=== PATIENT | female | born 1985 | race Caucasian/White ===

== ENCOUNTER 2016-03-16 13:42 | Emergency (ER) | payer OTHER ==
--- NOTE | 2016-03-16 15:49 | REP ---
Clinical: Trauma . Technique: Internal rotation, external rotation, and Y view left shoulder . Findings: No acute fracture or dislocation. The acromioclavicular and glenohumeral joints are intact. No periarticular calcifications or degenerative changes are appreciated. Sub acromial space is normal. Surrounding soft tissues are unremarkable. Impression: Normal left shoulder radiographs. Signed by Tony Peñaloza MD 03/16/2016 03:40 P
--- NOTE | 2016-03-16 16:02 | EDDOCDS ---
Nurse's Notes [facility] Name: Kalyn Olmos Age: 31 yrs Sex: Female : 1985 Arrival Date: 03/16/2016 Time: 13:42 Bed PR Private MD: Corry Mesa A.N.P. Diagnosis: Sprain of shoulder joint Presentation: 03/16 13:56 Presenting complaint: Patient states: Pt presents with pain left shoulder after dls slipping and falling on ice one week ago today was seem at [facility] had negative x/rays and was given a sling that she is not usung. Adult Sepsis Screening: The patient does not have new or worsening altered mentation. Patient's respiratory rate is less than 22. Systolic blood pressure is greater than 100. Patient has a qSOFA score of 1- Negative Sepsis Screen. Status: Patient is not a retail service specialist or dependent. Transition of care: patient was not received from another setting of care. 13:56 Acuity: MICHAELA Level 4 dls 13:56 Method Of Arrival: Walkin/Carried/Asstd dls Triage Assessment: 13:59 General: Appears in no apparent distress, well developed, well nourished, well groomed, dls Behavior is cooperative. Pain: Pain currently is 6 out of 10 on a pain scale. HIV screening NA for this visit Offered previously. 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 bc implant 2. Xanax 0.25 mg Oral tab as needed - PMHx: liver and spleen enlarged; - PSHx: Tonsillectomy; wisdom teeth; - Social history: Smoking status: Patient uses tobacco products, light tobacco smoker. No barriers to communication noted, The patient speaks fluent Tanzanian. - : The pt / caregiver states he / she is not on anticoagulants. Home medication list is obtained from the patient. - Exposure Risk Screening:: None identified. Vital Signs: 13:43 BP 136 / 77; Pulse 73; Resp 18 S; Temp 98.3(O); Pulse Ox 99% on R/A; Weight 74.84 kg dd6 (R); Height 5 ft. 5 in. (165.10 cm) (R); 15:49 BP 132 / 58; Pulse 59; Resp 18; Temp 97.1(O); Pulse Ox 98% on R/A; Pain 5/10; ct3 13:43 Body Mass Index 27.46 (74.84 kg, 165.10 cm) dd6 Vitals: 13:43 Log In Time: March 16, 2016 at 13:41. dd6 ED Course: 13:43 Patient visited by Adan Allen PCA. dd6 13:43 Corry Mesa is Private Physician. dd6 13:43 Patient moved to Waiting dd6 13:44 Patient moved to Pre RCE dd6 13:51 Triage Initiated dls 14:24 Patient moved to Triage 1 ct3 14:42 [facility] Payment Agreement was scanned into [employer] and attached to record. jp5 14:43 Daryl Nunez PA-C is PHCP. dk1 14:43 Veronica Godwin MD is Attending Physician. dk1 14:51 Patient visited by Daryl Nunez PA-C. dk1 14:58 Patient moved to TR2 ms18 15:25 Patient visited by Marleni Porter PCA. ct3 15:45 Patient moved to PR1 / 25 ct3 15:50 Patient visited by Marleni Porter PCA. ct3 15:53 [facility] is Referral Physician. dk1 Order Results: There are currently no results for this order. Outcome: 15:53 Discharge ordered by Provider. dk1 16:01 Patient left the ED. [facility] Signatures: Bernie Bro RN RN kcs Scott, Debra, RN RN dls Keyes, David, PA-C PA-C dk1 Adan Allen PCA HEAD SOFT SUGAR OPERATOR dd6 Marleni Porter PCA HEAD SOFT SUGAR OPERATOR ct3 Danielle Mayo RN RN ms18 Shane Sanches jp5 Corrections: (The following items were deleted from the chart) 13:55 13:50 Presenting complaint: Patient states: Pt presents with pain right wrist wrenched dls wrist with a drill at work 3-4 weeks ago. dls 13:55 13:50 Adult Sepsis Screening: The patient does not have new or worsening altered dls mentation. Patient's respiratory rate is less than 22. Systolic blood pressure is greater than 100. Patient has a qSOFA score of 0- Negative Sepsis Screen. dls 13:55 13:50 Suicide/Homicide risk assessment- the patient denies having any suicidal and/or dls homicidal ideations and does not present with any other emotional, behavioral or mental health complaints dls 13:50 Acuity: MICHAELA Level 4 dls dls 13:50 Method Of Arrival: Walkin/Carried/Asstd dls dls MTDD
--- NOTE | 2016-03-16 16:02 | EDDOCDS ---
Physician Documentation [facility] Name: Kalyn Olmos Age: 31 yrs Sex: Female : 1985 Arrival Date: 03/16/2016 Time: 13:42 Bed PR Private MD: Corry Mesa A.N.P. Disposition: 03/16/16 15:53 Discharged to Home/Self Care. Impression: Sprain of shoulder joint. - Condition is Stable. - Discharge Instructions: Shoulder Pain. - Prescriptions for Ibuprofen 600 mg Oral Tablet - take 1 tablet by ORAL route every 6 hours As needed take with food; 30 tablet. Zanaflex 4 mg Oral Tablet - take 1 tablet by ORAL route every 8 hours As needed; 20 tablet. - Medication Reconciliation, Local Pharmacy Hours form. - Follow up: [facility]; When: 4 - 5 days; Reason: Continuance of care. Follow up: Emergency Department; When: As needed; Reason: Worsening of conditions. - Problem is new. - Symptoms have improved. Historical: - Allergies: Codeine Sulfate; Tramadol HCl; - Home Meds: 1. bc implant 2. Xanax 0.25 mg Oral tab as needed - PMHx: liver and spleen enlarged; - PSHx: Tonsillectomy; wisdom teeth; - Social history: Smoking status: Patient uses tobacco products, light tobacco smoker. No barriers to communication noted, The patient speaks fluent Bahamian. - : The pt / caregiver states he / she is not on anticoagulants. Home medication list is obtained from the patient. - Exposure Risk Screening:: None identified. 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 5 in. (165.10 cm) (R); 15:49 BP 132 / 58; Pulse 59; Resp 18; Temp 97.1(O); Pulse Ox 98% on R/A; Pain 5/10; ct3 13:43 Body Mass Index 27.46 (74.84 kg, 165.10 cm) dd6 MDM: 14:42 [facility] Payment Agreement was scanned into [employer] and attached to record. jp5 14:55 Financial registration complete. jp5 14:58 Shoulder, Complete Ordered. EDMS Signatures: Dispatcher [employer] EDBernie Lopez, RN RN Aracelis Ahumada RN RN dls Keyes, David, FREDA PAShane Casey jp5 The chart was reviewed and I authenticate all verbal orders and agree with the evaluation and treatment provided.Attachments: 14:42 [facility] Payment Agreement jp5 MTDD
--- NOTE | 2016-03-18 17:02 | EDDOCDS ---
Nurse's Notes [facility] Name: Kalyn Olmos Age: 31 yrs Sex: Female : 1985 Arrival Date: 03/16/2016 Time: 13:42 Bed PR Private MD: Corry Mesa A.N.P. Diagnosis: Sprain of shoulder joint Presentation: 03/16 13:56 Presenting complaint: Patient states: Pt presents with pain left shoulder after dls slipping and falling on ice one week ago today was seem at [facility] had negative x/rays and was given a sling that she is not usung. Adult Sepsis Screening: The patient does not have new or worsening altered mentation. Patient's respiratory rate is less than 22. Systolic blood pressure is greater than 100. Patient has a qSOFA score of 1- Negative Sepsis Screen. 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 Transition of care: patient was not received from another setting of care. 13:56 Acuity: MICHAELA Level 4 dls 13:56 Method Of Arrival: Walkin/Carried/Asstd dls Triage Assessment: 13:59 General: Appears in no apparent distress, well developed, well nourished, well groomed, dls Behavior is cooperative. Pain: Pain currently is 6 out of 10 on a pain scale. HIV screening NA for this visit Offered previously. 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 bc implant 2. Xanax 0.25 mg Oral tab as needed - PMHx: liver and spleen enlarged; - PSHx: Tonsillectomy; wisdom teeth; - Social history: Smoking status: Patient uses tobacco products, light tobacco smoker. No barriers to communication noted, The patient speaks fluent [place]. - Family history: Not pertinent. - : The pt / caregiver states he / she is not on anticoagulants. Home medication list is obtained from the patient. - Exposure Risk Screening:: None identified. Screenin:00 Screening information is obtained from prior medical records. Fall risk: No risks kcs identified. Assistance ADL's: requires no assistance with activities of daily living. Abuse/DV Screen: The patient / caregiver reports he/she is: not in a situation that causes fear, pain or injury. Nutritional screening: No deficits noted. Advance Directives: Currently, there is no health care proxy. home support is adequate. Assessment: 16:00 Reassessment: Patient states symptoms have improved. patient states the shoulder kcs bothers her more at night than during the day.. General: Appears comfortable, well developed, well nourished, well groomed, Behavior is cooperative, pleasant. Pain: Location: left shoulder. Neurological: Level of Consciousness is awake, alert. Respiratory: Airway is patent Respiratory effort is even, unlabored, Respiratory pattern is regular, symmetrical. Derm: Skin is intact, is healthy with good turgor, Skin is dry, Skin is normal. Vital Signs: 13:43 BP 136 / 77; Pulse 73; Resp 18 S; Temp 98.3(O); Pulse Ox 99% on R/A; Weight 74.84 kg dd6 (R); Height 5 ft. 5 in. (165.10 cm) (R); 15:49 BP 132 / 58; Pulse 59; Resp 18; Temp 97.1(O); Pulse Ox 98% on R/A; Pain 5/10; ct3 13:43 Body Mass Index 27.46 (74.84 kg, 165.10 cm) dd6 Vitals: 13:43 Log In Time: March 16, 2016 at 13:41. dd6 ED Course: 13:43 Patient visited by Adan Allen PCA. dd6 13:43 Corry Mesa is Private Physician. dd6 13:43 Patient moved to Waiting dd6 13:44 Patient moved to Pre RCE dd6 13:51 Triage Initiated dls 14:24 Patient moved to Triage 1 ct3 14:42 [facility] Payment Agreement was scanned into [employer] and attached to record. jp5 14:43 Daryl Nunez PA-C is PHCP. dk1 14:43 Veronica Godwin MD is Attending Physician. dk1 14:51 Patient visited by Daryl Nunez PA-C. dk1 14:58 Patient moved to TR2 ms18 15:25 Patient visited by Marleni Porter PCA. ct3 15:45 Patient moved to PR1 / 25 ct3 15:50 Patient visited by Marleni Porter PCA. ct3 15:53 [facility] is Referral Physician. dk1 16:00 The patient / caregiver is instructed regarding the plan of care and ED course. kcs 16:00 No IV's were initiated during this patient's visit. No procedures done that require kcs assistance. 16:20 Shoulder, Complete Returned. [facility] 03/17 06:08 T-Sheet-- Draft Copy was scanned into [employer] and attached to record. [facility] Order Results: Radiology Order: Shoulder, Complete Test: Shoulder, Complete REASON FOR EXAMINATION: Trauma; Clinical: Trauma .; ; Technique: Internal rotation, external rotation, and Y view left shoulder .; ; Findings:; No acute fracture or dislocation. The acromioclavicular and glenohumeral joints; are intact. No periarticular calcifications or degenerative changes are; appreciated. Sub acromial space is normal. Surrounding soft tissues are; unremarkable.; ; Impression:; Normal left shoulder radiographs.; ; ; Signed by; Tony Peñaloza MD 03/16/2016 03:40 P; Outcome: 03/16 15:53 Discharge ordered by Provider. dk1 16:00 Discharge Assessment: Patient awake, alert and oriented x 3. No cognitive and/or kcs functional deficits noted. Patient verbalized understanding of disposition instructions. Patient awake and alert. patient administered narcotics - no. The following High Risk Discharge criteria are identified: None. Discharged to home ambulatory, with family. Condition: stable. Discharge instructions given to patient, Instructed on discharge instructions, follow up and referral plans. medication usage, no driving heavy equipment, no drinking with medication, Demonstrated understanding of instructions, medications, Pt was receptive of discharge instructions/ teaching. No special radiology studies were completed. Property sent home with patient. 16:01 Patient left the ED. kcs Signatures: Dispatcher [facility] Bernie Bro RN RN Aracelis Ahumada RN RN dls Keyes, David, PA-C PA-C dk1 Adan Allen, MEDIA SALES EXECUTIVE MEDIA SALES EXECUTIVE dd6 Marleni Porter, MEDIA SALES EXECUTIVE MEDIA SALES EXECUTIVE ct3 Danielle Mayo,VIKTOR RN ms18 Fouzia, Shane Coffman jp5 Corrections: (The following items were deleted from the chart) 13:55 13:50 Presenting complaint: Patient states: Pt presents with pain right wrist wrenched dls wrist with a drill at work 3-4 weeks ago. dls 13:55 13:50 Adult Sepsis Screening: The patient does not have new or worsening altered dls mentation. Patient's respiratory rate is less than 22. Systolic blood pressure is greater than 100. Patient has a qSOFA score of 0- Negative Sepsis Screen. dls 13:55 13:50 Suicide/Homicide risk assessment- the patient denies having any suicidal and/or dls homicidal ideations and does not present with any other emotional, behavioral or mental health complaints dls 13:55 13:50 Acuity: MICHAELA Level 4 dls dls 13: 13:50 Method Of Arrival: Walkin/Carried/Asstd dls dls 16:33 16:32 Screening information is obtained from prior medical records. kcs kcs 16:33 16:32 Fall risk: No risks identified. kcs kcs 16:33 16:32 Assistance ADL's: requires no assistance with activities of daily living. kcs kcs 16:33 16:32 Abuse/DV Screen: The patient / caregiver reports he/she is: not in a situation kcs that causes fear, pain or injury. kcs 16:33 16:32 Nutritional screening: No deficits noted. kcs kcs 16:33 16:32 Advance Directives: Currently, there is no health care proxy. kcs kcs 16:33 16:32 home support is adequate. kcs kcs Chart Complete MTDD
--- NOTE | 2016-03-18 17:02 | EDDOCDS ---
Physician Documentation [facility] Name: Kalyn Olmos Age: 31 yrs Sex: Female : 1985 Arrival Date: 03/16/2016 Time: 13:42 Bed PR Private MD: Corry Mesa A.N.P. Disposition: 03/16/16 15:53 Discharged to Home/Self Care. Impression: Sprain of shoulder joint. - Condition is Stable. - Discharge Instructions: Shoulder Pain. - Prescriptions for Ibuprofen 600 mg Oral Tablet - take 1 tablet by ORAL route every 6 hours As needed take with food; 30 tablet. Zanaflex 4 mg Oral Tablet - take 1 tablet by ORAL route every 8 hours As needed; 20 tablet. - Medication Reconciliation, Local Pharmacy Hours form. - Follow up: [facility]; When: 4 - 5 days; Reason: Continuance of care. Follow up: Emergency Department; When: As needed; Reason: Worsening of conditions. - Problem is new. - Symptoms have improved. Historical: - Allergies: Codeine Sulfate; Tramadol HCl; - Home Meds: 1. bc implant 2. Xanax 0.25 mg Oral tab as needed - PMHx: liver and spleen enlarged; - PSHx: Tonsillectomy; wisdom teeth; - Social history: Smoking status: Patient uses tobacco products, light tobacco smoker. No barriers to communication noted, The patient speaks fluent Palestinian. - Family history: Not pertinent. - : The pt / caregiver states he / she is not on anticoagulants. Home medication list is obtained from the patient. - Exposure Risk Screening:: None identified. 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 5 in. (165.10 cm) (R); 15:49 BP 132 / 58; Pulse 59; Resp 18; Temp 97.1(O); Pulse Ox 98% on R/A; Pain 5/10; ct3 13:43 Body Mass Index 27.46 (74.84 kg, 165.10 cm) dd6 MDM: 14:42 [facility] Payment Agreement was scanned into [employer] and attached to record. jp5 14:55 Financial registration complete. jp5 14:58 Shoulder, Complete Ordered. EDIA 03/17 06:08 T-Sheet-- Draft Copy was scanned into [employer] and attached to record. cami Signatures: Dispatcher [employer] EDBernie Lopez RN RN kcs Scott, Debra, RN RN dls Keyes, David, PABasim PA-Misha yanes Arel, Shane Coffman jp5 The chart was reviewed and I authenticate all verbal orders and agree with the evaluation and treatment provided.Attachments: 03/16 14:42 [facility] Payment Agreement jp5 03/17 06:08 T-Sheet-- Draft Copy [email or web address] Chart Complete MTDD
--- NOTE | 2016-03-18 17:02 | EDDOCDS ---
Physician Documentation [facility] Name: Kalyn Olmos Age: 31 yrs Sex: Female : 1985 Arrival Date: 03/16/2016 Time: 13:42 Bed PR Private MD: Corry Mesa A.N.P. Disposition: 03/16/16 15:53 Discharged to Home/Self Care. Impression: Sprain of shoulder joint. - Condition is Stable. - Discharge Instructions: Shoulder Pain. - Prescriptions for Ibuprofen 600 mg Oral Tablet - take 1 tablet by ORAL route every 6 hours As needed take with food; 30 tablet. Zanaflex 4 mg Oral Tablet - take 1 tablet by ORAL route every 8 hours As needed; 20 tablet. - Medication Reconciliation, Local Pharmacy Hours form. - Follow up: [facility]; When: 4 - 5 days; Reason: Continuance of care. Follow up: Emergency Department; When: As needed; Reason: Worsening of conditions. - Problem is new. - Symptoms have improved. Historical: - Allergies: Codeine Sulfate; Tramadol HCl; - Home Meds: 1. bc implant 2. Xanax 0.25 mg Oral tab as needed - PMHx: liver and spleen enlarged; - PSHx: Tonsillectomy; wisdom teeth; - Social history: Smoking status: Patient uses tobacco products, light tobacco smoker. No barriers to communication noted, The patient speaks fluent Nicaraguan. - Family history: Not pertinent. - : The pt / caregiver states he / she is not on anticoagulants. Home medication list is obtained from the patient. - Exposure Risk Screening:: None identified. 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 5 in. (165.10 cm) (R); 15:49 BP 132 / 58; Pulse 59; Resp 18; Temp 97.1(O); Pulse Ox 98% on R/A; Pain 5/10; ct3 13:43 Body Mass Index 27.46 (74.84 kg, 165.10 cm) dd6 MDM: 14:42 [facility] Payment Agreement was scanned into [employer] and attached to record. jp5 14:55 Financial registration complete. jp5 14:58 Shoulder, Complete Ordered. EDWV 03/17 06:08 T-Sheet-- Draft Copy was scanned into [employer] and attached to record. cami Signatures: Dispatcher [employer] EDBernie Lopez RN RN kcs Scott, Debra, RN RN dls Keyes, David, PABasim PA-Misha yanes Arel, Shane Coffman jp5 The chart was reviewed and I authenticate all verbal orders and agree with the evaluation and treatment provided.Attachments: 03/16 14:42 [facility] Payment Agreement jp5 03/17 06:08 T-Sheet-- Draft Copy [email or web address] Chart Complete MTDD
== END 2016-03-16 16:01 | disposition home or self-care (01) ==
LOC: M ED 13:42
DX: S43.402A Unspecified sprain of left shoulder joint, initial encounter (principal); W19.XXXA Unspecified fall, initial encounter; Y92.89 Other specified places as the place of occurrence of the external cause; Y93.89 Activity, other specified; Y99.8 Other external cause status; R16.2 Hepatomegaly with splenomegaly, not elsewhere classified; Z72.0 Tobacco use; Z79.3 Long term (current) use of hormonal contraceptives; Z88.2 Allergy status to sulfonamides; Z88.5 Allergy status to narcotic agent

== ENCOUNTER 2016-05-02 12:38 | Emergency (ER) | payer OTHER ==
[2016-05-02] MEDS ORDERED: ONDANSETRON 4MG/2ML VIAL (J2405) As Ordered ONE (14:22)
[2016-05-02] MEDS ORDERED: KETOROLAC 30 MG/ML VIAL (J1885) As Ordered ONE (14:22)
[2016-05-02 15:02] LABS: BASO % 0.3 % (0.0-1.0); EOS % 0.9 % (0.0-3.0); LARGE UNSTAINED CELL # 0.1 K/mm3 (0.0-0.4); LARGE UNSTAINED CELL % 1.6 % (0.0-4.0); LYMPH # 0.8 K/mm3 (1.5-6.5); LYMPH % 16.5 % (24.0-44.0); MEAN CORPUSCULAR HEMOGLOBIN 31.3 pg (27.0-33.0); MEAN CORPUSCULAR HGB CONC 35.8 g/dl (32.0-36.5); MEAN CORPUSCULAR VOLUME 87.6 fl (80.0-96.0); MONO # 0.3 K/mm3 (0.0-0.8); MONO % 6.6 % (0.0-5.0); NEUTROPHILS # 3.3 K/mm3 (1.8-7.7); NEUTROPHILS % 74.1 % (36.0-66.0); PLATELET COUNT, AUTOMATED 174 k/mm3 (150-450); RED CELL DISTRIBUTION WIDTH 12.7 % (11.5-14.5); WHITE BLOOD COUNT 4.5 K/mm3 (4.0-10.0)
[2016-05-02 15:11] LABS: CONTROL LINE MONO INT CTR LINE PRESENT
[2016-05-02 15:14] LABS: AMYLASE 35 U/L (25-115)
[2016-05-02 15:19] LABS: ALBUMIN 4.4 GM/DL (3.2-5.2); ALBUMIN/GLOBULIN RATIO 1.69 (1.00-1.93); ALKALINE PHOSPHATASE 69 U/L (45-117); ALT/SGPT 18 U/L (12-78); ANION GAP 9 MEQ/L (8-16); AST/SGOT 13 U/L (15-37); BILIRUBIN,TOTAL 0.5 MG/DL (0.2-1.0); BLOOD UREA NITROGEN 5 MG/DL (7-18); CALCIUM LEVEL 8.9 MG/DL (8.5-10.1); CARBON DIOXIDE LEVEL 27 MEQ/L (21-32); CHLORIDE LEVEL 107 MEQ/L (98-107); CREATININE FOR GFR 0.73 MG/DL (0.55-1.02); GLOMERULAR FILTRATION RATE > 60.0 (>60); GLUCOSE, FASTING 78 MG/DL (70-105); SODIUM LEVEL 143 MEQ/L (136-145)
[2016-05-02] MEDS ORDERED: ISOVUE-370 76% 100ML VIAL (Q9967) As Ordered ONE (15:21)
--- NOTE | 2016-05-02 15:46 | REP ---
Clinical: Pain and swelling. Technique: Axial contrast enhanced images from the skull base to the thoracic inlet with coronal and sagittal re-formations using 100 ml IU 370 intravenous contrast material. Findings: Mild adenopathy (left greater than right) noted with left-sided lymph nodes in the submandibular region measuring up to approximately 17 mm. No significant inflammatory stranding, mass/mass effect, drainable collection or abscess. The nasopharynx, oropharynx and hypopharynx appears normal. Airway is patent. Impression: Adenopathy may reflect underlying infectious/inflammatory process. No further mass/mass effect, drainable collection, abscess or pathology appreciated. Signed by Tony Peñaloza MD 05/02/2016 03:37 P
[2016-05-02] MEDS ORDERED: AUGMENTIN 875 MG TAB As Ordered ONE (16:24)
--- NOTE | 2016-05-02 16:35 | EDDOCDS ---
Physician Documentation [facility] Name: Kalyn Olmos Age: 31 yrs Sex: Female : 1985 Arrival Date: 05/02/2016 Time: 12:38 Bed I2 / M2 Private MD: NO PRIMARY PHYSICIAN, . Disposition: 05/02/16 16:14 Discharged to Home/Self Care. Impression: Acute gingivitis, Acute lymphadenitis - Cervical Lymphadenopathy. - Condition is Stable. - Discharge Instructions: Gingivitis, [id number], Lymphadenopathy. - Prescriptions for Augmentin 875- 125 mg Oral Tablet - take 1 tablet by ORAL route every 12 hours for 10 days; 20 tablet. magic mouthwash Mucous Membrane Solution - apply to affected area 5 milliliters by ORAL route 4 times per day As needed Gargle, Swish, Spit; Maalox, Liquid Benadryl, and Viscous Lidocaine; 1 to 1 to 1 ratio; 237 milliliter. - Medication Reconciliation, Referral List Call for Appointment, Dental Referral List, Local Pharmacy Hours form. - [facility] up: [facility] ; When: 1 - 2 days; Reason: Recheck today's complaints, Continuance of care. Follow up: Dentist Your; When: 1 - 2 days; Reason: Recheck today's complaints, Continuance of care. Follow up: Emergency Department; Reason: Worsening of conditions. - Problem is new. - Symptoms have improved. Historical: - Allergies: Codeine Sulfate; Tramadol HCl; - Home Meds: 1. bc implant 2. Xanax 0.25 mg Oral tab as needed (Last dose: Unknown) 3. nystatin 100,000 unit/mL Oral susp 4 times per day (Last dose: 05/02/2016 10:46) 4. sulfamethoxazole-trimethoprim 800-160 mg Oral tab 1 tab every 12 hours (Last dose: 05/02/2016 07:30) - PMHx: liver and spleen enlarged; Anxiety; - PSHx: Tonsillectomy; wisdom teeth; - Social history: Smoking status: Patient uses tobacco products, current every day smoker. No barriers to communication noted, The patient speaks fluent Maltese, Speaks appropriately for age. - Family history: No immediate family members are acutely ill. - : The pt / caregiver states he / she is not on anticoagulants. Home medication list is obtained from the patient. - Exposure Risk Screening:: None identified. 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 5 in. (165.10 cm) (R); Pain 7/10; 15:46 Temp 99.3(T); mb9 15:46 Pain 4/10; mb9 16:12 BP 103 / 59; Pulse 80; Resp 18; Temp 97.9(O); Pulse Ox 98% on R/A; Pain 6/10; nb2 12:41 Body Mass Index 26.96 (73.48 kg, 165.10 cm) gr2 MDM: 13:58 Financial registration complete. lg 14:12 IV Saline Lock ordered. ef1 14:12 Strep Screen, Nursing ordered. ef1 14:12 Obtain sample by nasopharyngeal swab ordered. ef1 14:13 ketorolac 30 mg IVP once ordered. ef1 14:13 Ondansetron 4 mg IVP once ordered. ef1 14:14 CBC with Diff Ordered. EDMS 14:14 Complete Comphrensive Metabolic Ordered. EDMS 14:14 Monoscreen Ordered. EDMS 14:14 -Influenza A&B Rapid Antigen - Nose Ordered. EDMS 14:18 Amylase Ordered. EDMS 14:18 Lipase Ordered. EDMS 14:19 CT Neck With Contrast Ordered. EDMS 14:28 [facility] Payment Agreement was scanned into [employer] and attached to record. lg 14:52 GATS (NEGATIVE STREP SCREEN) Ordered. EDMS 15:19 CBC with Diff Reviewed. ef1 15:19 Monoscreen Reviewed. ef1 15:19 -Influenza A&B Rapid Antigen - Nose Reviewed. ef1 15:19 Amylase Reviewed. ef1 15:19 Lipase Reviewed. ef1 15:29 Complete Comphrensive Metabolic Reviewed. ef1 15:29 Monoscreen Reviewed. ef1 15:51 CT Neck With Contrast Reviewed. ef1 16:16 Amoxicillin-Clavulanate 875 mg 1 tabs PO once ordered. ef1 Administered Medications: 14:49 Drug: Ondansetron 4 mg [ondansetron HCl 2 mg/mL intravenous solution (2 mL)] Route: mb9 IVP; Site: left antecubital; 14:50 Drug: ketorolac 30 mg [ketorolac 30 mg/mL (1 mL) injection solution (1 mL)] Route: IVP; mb9 Site: left antecubital; 15:46 Follow up: Pain 4/10 Adult; Response: Pain is decreased mb9 16:30 Drug: Amoxicillin-Clavulanate 1 tabs [amoxicillin 875 mg-potassium clavulanate 125 mg dls tablet (1 tabs)] Route: PO; 16:31 Follow up: Response: Pt left department before re-evaluation is appropriate dls Signatures: Dispatcher [employer] EDMS Aracelis Majano RN RN Erwin Cali, Donn Reg lg Ghazala Christopher, PA-C PA-C ef1 Day Lerma RN RN dsf Belles, MichaelRN RN mb9 The chart was reviewed and I authenticate all verbal orders and agree with the evaluation and treatment provided.Corrections: (The following items were deleted from the chart) 14:24 14:14 CT Maxillofacial with contrast+CT ordered. EDMS EDMS Attachments: 14:28 [facility] [place] lg MTDD
--- NOTE | 2016-05-02 16:35 | EDDOCDS ---
Nurse's Notes [facility] Name: Kalyn Olmos Age: 31 yrs Sex: Female : 1985 Arrival Date: 05/02/2016 Time: 12:38 Bed I2 / M2 Private MD: NO PRIMARY PHYSICIAN, . Diagnosis: Acute gingivitis;Acute lymphadenitis-Cervical Lymphadenopathy Presentation: 05/02 12:43 Presenting complaint: Patient states: was seen at ER in [facility]. pt reports sores in dsf mouth. pt reports left sided neck pain and swelling. pt also reports pain to left side when taking a deep breath. pt was given antibiotics for an infection. pt did have an MRI done. Onset: The symptoms/episode began/occurred 3 day(s) ago. This patient has not experienced a previous allergic reaction. Anaphylaxis evaluation, the patient reports or I have noted the following symptoms which indicate a significant risk of anaphylaxis: no signs or symptoms of anaphylaxis were noted. Adult Sepsis Screening: The patient does not have new or worsening altered mentation. Patient's respiratory rate is less than 22. Systolic blood pressure is greater than 100. Patient has a qSOFA score of 0- Negative Sepsis Screen. Suicide/Homicide risk assessment- the patient denies having any suicidal and/or homicidal ideations and does not present with any other emotional, behavioral or mental health complaints. Status: Patient is not a disabilities services officer or dependent. Transition of care: patient was not received from another setting of care. 12:43 Acuity: MICHAELA Level 3 dsf 12:43 Method Of Arrival: Walkin/Carried/Asstd dsf Triage Assessment: 12:47 General: Appears in no apparent distress, Behavior is appropriate for age, cooperative. dsf Pain: Location: mouth and left side of neck Pain currently is 7 out of 10 on a pain scale. Quality of pain is described as stabbing, throbbing. HIV screening NA for this visit Offered previously. EENT: Reports difficulty swallowing since 3 days ago. Respiratory: Reports no respiratory complaints. SCHEDULE HANGER: 12:47 LMP N/A - control method dsf Historical: - Allergies: Codeine Sulfate; Tramadol HCl; - Home Meds: 1. bc implant 2. Xanax 0.25 mg Oral tab as needed (Last dose: Unknown) 3. nystatin 100,000 unit/mL Oral susp 4 times per day (Last dose: 05/02/2016 10:46) 4. sulfamethoxazole-trimethoprim 800-160 mg Oral tab 1 tab every 12 hours (Last dose: 05/02/2016 07:30) - PMHx: liver and spleen enlarged; Anxiety; - PSHx: Tonsillectomy; wisdom teeth; - Social history: Smoking status: Patient uses tobacco products, current every day smoker. No barriers to communication noted, The patient speaks fluent Danish, Speaks appropriately for age. - Family history: No immediate family members are acutely ill. - : The pt / caregiver states he / she is not on anticoagulants. Home medication list is obtained from the patient. - Exposure Risk Screening:: None identified. Screenin:31 Screening information is obtained from the patient. Fall risk: No risks identified. dls Assistance ADL's: requires no assistance with activities of daily living. Abuse/DV Screen: The patient / caregiver reports he/she is: not in a situation that causes fear, pain or injury. Nutritional screening: No deficits noted. Advance Directives: Currently, there is no health care proxy. There is no active DNR order. There is no living will. There is no Power of Chipper Feeder. Advance directive information has not previously been placed in an [facility] medical record. home support is adequate. Assessment: 14:51 General: Appears uncomfortable, Behavior is appropriate for age, cooperative. Pain: mb9 Location: mouth Pain currently is 8 out of 10 on a pain scale. Aggravated by eating, drinking. EENT: Lesions noted. pt appears to have lesions to the left upper gum line.. Respiratory: Airway is patent Respiratory effort is even, unlabored. 15:32 General: Appears. dls 15:33 General: Pt to CT and returned via w/c IV site remains patent and clear.. dls 15:46 Reassessment: Patient states feeling better. Patient states symptoms have improved. mb9 General: Appears uncomfortable, Behavior is cooperative. Pain: Location: mouth Pain currently is 4 out of 10 on a pain scale. 16:33 Respiratory: Breath sounds are clear bilaterally. dls Vital Signs: 12:41 BP 126 / 75; Pulse 76; Resp 18 S; Temp 99.6(O); Pulse Ox 100% on R/A; Weight 73.48 kg gr2 (R); Height 5 ft. 5 in. (165.10 cm) (R); Pain 7/10; 15:46 Temp 99.3(T); mb9 15:46 Pain 4/10; mb9 16:12 BP 103 / 59; Pulse 80; Resp 18; Temp 97.9(O); Pulse Ox 98% on R/A; Pain 6/10; nb2 12:41 Body Mass Index 26.96 (73.48 kg, 165.10 cm) gr2 Vitals: 12:41 Log In Time: May 02, 2016 at 12:41. gr2 ED Course: 12:40 Patient visited by Heidi Andrew. gr2 12:40 NO PRIMARY PHYSICIAN, . is Private Physician. gr2 12:40 Patient moved to Waiting gr2 12:41 Patient visited by Heidi Andrew. gr2 12:41 Patient moved to Pre RCE gr2 12:45 Triage Initiated dsf 13:40 Patient moved to Triage 2 srm 13:56 Ghazala Christopher PA-C is [facility]. ef1 13:56 Veronica Godwin MD is Attending Physician. ef1 13:56 Patient visited by Ghazala Christopher PA-C. ef1 14:12 Patient moved to I2 / M2 srm 14:16 Patient visited by Ghazala Christopher PA-C. ef1 14:28 [facility] Payment Agreement was scanned into [employer] and attached to record. lg 14:49 Patient visited by Ghazala Christopher PA-C. ef1 14:49 Lipase Sent. mb9 14:49 Amylase Sent. mb9 14:50 -Influenza A&B Rapid Antigen - Nose Sent. mb9 14:50 Monoscreen Sent. mb9 14:50 Complete Comphrensive Metabolic Sent. mb9 14:50 CBC with Diff Sent. mb9 14:52 Inserted saline lock: 20 gauge in left antecubital area and blood collected. The mb9 patient tolerated the procedure well. 15:19 Patient visited by Ghazala Christopher PA-C. ef1 15:48 CT Neck With Contrast Returned. EDMS 15:51 Patient visited by Ghazala Christopher PA-C. ef1 16:11 Patient visited by Ghazala Christopher PA-C. ef1 16:13 Patient visited by Romana Murcia. nb2 16:14 [facility] is Referral Physician. ef1 16:14 Your, Dentist is Referral Physician. ef1 16:31 The patient / caregiver is instructed regarding the plan of care and ED course. dls 16:31 No procedures done that require assistance. dls 16:32 Discontinued IV lock intact, bleeding controlled, pressure dressing applied, No dls redness/swelling at site. Administered Medications: 14:49 Drug: Ondansetron 4 mg [ondansetron HCl 2 mg/mL intravenous solution (2 mL)] Route: mb9 IVP; Site: left antecubital; 14:50 Drug: ketorolac 30 mg [ketorolac 30 mg/mL (1 mL) injection solution (1 mL)] Route: IVP; mb9 Site: left antecubital; 15:46 Follow up: Pain 4/10 Adult; Response: Pain is decreased mb9 16:30 Drug: Amoxicillin-Clavulanate 1 tabs [amoxicillin 875 mg-potassium clavulanate 125 mg dls tablet (1 tabs)] Route: PO; 16:31 Follow up: Response: Pt left department before re-evaluation is appropriate dls Order Results: Lab Order: CBC with Diff; SPEC'M 05/02/16 14:44 Test: WHITE BLOOD COUNT; Value: 4.5; Range: 4.0-10.0; Units: K/mm3; Status: F Test: RED BLOOD COUNT; Value: 4.29; Range: 4.00-5.40; Units: M/mm3; Status: F Test: HEMOGLOBIN; Value: 13.4; Range: 12.0-16.0; Units: g/dl; Status: F Test: HEMATOCRIT; Value: 37.6; Range: 36.0-47.0; Units: %; Status: F Test: MEAN CORPUSCULAR VOLUME; Value: 87.6; Range: 80.0-96.0; Units: fl; Status: F Test: MEAN CORPUSCULAR HEMOGLOBIN; Value: 31.3; Range: 27.0-33.0; Units: pg; Status: F Test: MEAN CORPUSCULAR HGB CONC; Value: 35.8; Range: 32.0-36.5; Units: g/dl; Status: F Test: RED CELL DISTRIBUTION WIDTH; Value: 12.7; Range: 11.5-14.5; Units: %; Status: F Test: PLATELET COUNT, AUTOMATED; Value: 174; Range: 150-450; Units: k/mm3; Status: F Test: NEUTROPHILS %; Value: 74.1; Range: 36.0-66.0; Abnormal: Above high normal; Units: %; Status: F Test: LYMPH %; Value: 16.5; Range: 24.0-44.0; Abnormal: Below low normal; Units: %; Status: F Test: MONO %; Value: 6.6; Range: 0.0-5.0; Abnormal: Above high normal; Units: %; Status: F Test: EOS %; Value: 0.9; Range: 0.0-3.0; Units: %; Status: F Test: BASO %; Value: 0.3; Range: 0.0-1.0; Units: %; Status: F Test: LARGE UNSTAINED CELL %; Value: 1.6; Range: 0.0-4.0; Units: %; Status: F Test: NEUTROPHILS #; Value: 3.3; Range: 1.8-7.7; Units: K/mm3; Status: F Test: LYMPH #; Value: 0.8; Range: 1.5-6.5; Abnormal: Below low normal; Units: K/mm3; Status: F Test: MONO #; Value: 0.3; Range: 0.0-0.8; Units: K/mm3; Status: F Test: EOS #; Value: 0.0; Range: 0.0-0.50; Units: K/mm3; Status: F Test: BASO #; Value: 0.0; Range: 0.0-0.2; Units: K/mm3; Status: F Test: LARGE UNSTAINED CELL #; Value: 0.1; Range: 0.0-0.4; Units: K/mm3; Status: F Lab Order: Complete Comphrensive Metabolic; SPEC'M 05/02/16 14:44 Test: GLUCOSE, FASTING; Value: 78; Range: 70-105; Units: MG/DL; Status: F Test: BLOOD UREA NITROGEN; Value: 5; Range: 7-18; Abnormal: Below low normal; Units: MG/DL; Status: F Test: CREATININE FOR GFR; Value: 0.73; Range: 0.55-1.02; Units: MG/DL; Status: F Test: SODIUM LEVEL; Range: 136-145; Units: MEQ/L; Status: I Test: POTASSIUM SERUM; Range: 3.5-5.1; Units: MEQ/L; Status: I Test: CHLORIDE LEVEL; Range: 98-107; Units: MEQ/L; Status: I Test: CARBON DIOXIDE LEVEL; Range: 21-32; Units: MEQ/L; Status: I Test: ANION GAP; Range: 8-16; Units: MEQ/L; Status: I Test: CALCIUM LEVEL; Range: 8.5-10.1; Units: MG/DL; Status: I Test: AST/SGOT; Range: 15-37; Units: U/L; Status: I Test: ALT/SGPT; Range: 12-78; Units: U/L; Status: I Test: ALKALINE PHOSPHATASE; Range: 45-117; Units: U/L; Status: I Test: BILIRUBIN,TOTAL; Range: 0.2-1.0; Units: MG/DL; Status: I Test: TOTAL PROTEIN; Range: 6.4-8.2; Units: GM/DL; Status: I Test: ALBUMIN; Range: 3.2-5.2; Units: GM/DL; Status: I Test: ALBUMIN/GLOBULIN RATIO; Range: 1.00-1.93; Status: I Test: GLOMERULAR FILTRATION RATE; Value: > 60.0; Range: >60; Status: F Test: SODIUM LEVEL; Value: 143; Range: 136-145; Units: MEQ/L; Status: F Test: POTASSIUM SERUM; Value: 4.0; Range: 3.5-5.1; Units: MEQ/L; Status: F Test: CHLORIDE LEVEL; Value: 107; Range: 98-107; Units: MEQ/L; Status: F Test: CARBON DIOXIDE LEVEL; Value: 27; Range: 21-32; Units: MEQ/L; Status: F Test: ANION GAP; Value: 9; Range: 8-16; Units: MEQ/L; Status: F Test: CALCIUM LEVEL; Value: 8.9; Range: 8.5-10.1; Units: MG/DL; Status: F Test: AST/SGOT; Value: 13; Range: 15-37; Abnormal: Below low normal; Units: U/L; Status: F Test: ALT/SGPT; Value: 18; Range: 12-78; Units: U/L; Status: F Test: ALKALINE PHOSPHATASE; Value: 69; Range: 45-117; Units: U/L; Status: F Test: BILIRUBIN,TOTAL; Value: 0.5; Range: 0.2-1.0; Units: MG/DL; Status: F Test: TOTAL PROTEIN; Value: 7.0; Range: 6.4-8.2; Units: GM/DL; Status: F Test: ALBUMIN; Value: 4.4; Range: 3.2-5.2; Units: GM/DL; Status: F Test: ALBUMIN/GLOBULIN RATIO; Value: 1.69; Range: 1.00-1.93; Status: F Test Note: ; Units are mL/min/1.73 m2 Chronic Kidney Disease Staging per NKF: Stage I & II GFR >=60 Normal to Mildly Decreased Stage III GFR 30-59 Moderately Decreased Stage IV GFR 15-29 Severely Decreased Stage V GFR <15 Very Little GFR Left ESRD GFR <15 on COAL HIKER Lab Order: Monoscreen; SPEC'M 05/02/16 14:44 Test: MONO SCRN; Value: NEGATIVE; Range: NEGATIVE; Status: F Lab Order: -Influenza A&B Rapid Antigen - Nose; SPEC'M 05/02/16 14:44 Test: INFLUENZA A RAPID SCR by ICA; Value: INFLUENZA A RESULTS NEGATIVE; Status: F Test: INFLUENZA A RAPID SCR by ICA; Value: Comments:; Status: F Test: INFLUENZA B RAPID SCR by ICA; Value: INFLUENZA B RESULTS NEGATIVE; Status: F Test Note: ; The Influenza test is a direct rapid immunoassay for the qualitative detection of Influenza viral antigen. Cell culture (Viral Culture) testing should be considered to confirm NEGATIVE results and to assist in detecting other viruses that can provide similar clinical symptoms. Please contact the lab within 24 hours ([phone]) if confirmatory testing is desired. Lab Order: Amylase; SPEC'M 05/02/16 14:44 Test: AMYLASE; Value: 35; Range: 25-115; Units: U/L; Status: F Lab Order: Lipase; SPEC'M 05/02/16 14:44 Test: LIPASE; Value: 86; Range: 73-393; Units: U/L; Status: F Radiology Order: CT Neck With Contrast Test: CT Neck With Contrast REASON FOR EXAMINATION: Deformity/Swelling; Clinical: Pain and swelling.; ; Technique: Axial contrast enhanced images from the skull base to the thoracic; inlet with coronal and sagittal re-formations using 100 ml IU 370 intravenous; contrast material.; ; Findings:; Mild adenopathy (left greater than right) noted with left-sided lymph nodes in; the submandibular region measuring up to approximately 17 mm. No significant; inflammatory stranding, mass/mass effect, drainable collection or abscess. The; nasopharynx, oropharynx and hypopharynx appears normal. Airway is patent.; ; Impression:; Adenopathy may reflect underlying infectious/inflammatory process.; No further mass/mass effect, drainable collection, abscess or pathology; appreciated.; ; ; Signed by; Tony Peñaloza MD 05/02/2016 03:37 P; Outcome: 16:14 Discharge ordered by Provider. ef1 16:32 Discharge Assessment: Patient awake, alert and oriented x 3. No cognitive and/or dls functional deficits noted. Patient verbalized understanding of disposition instructions. patient administered narcotics - no. The following High Risk Discharge criteria are identified: None. Discharged to home ambulatory, with family. Condition: stable. Discharge instructions given to patient, Instructed on discharge instructions, follow up and referral plans. medication usage, Demonstrated understanding of instructions, medications, Pt was receptive of discharge instructions/ teaching. Prescriptions given X 2. CT Study completed. Property sent home with patient. 16:33 Patient left the ED. dls Signatures: Dispatcher [employer] EDOK Yocasta Watt RN RN srm Scott, Debra, RN RN dls Ganter, LoriLee, Reg Reg lg Ghazala Christopher, PA-C PA-C ef1 Day Lerma RN RN Heidi Benito gr2 Trae Joyce RN RN mb9 Romana Murcia2 MTDD
--- NOTE | 2016-05-04 17:35 | EDDOCDS ---
Nurse's Notes [facility] Name: Kalyn Olmos Age: 31 yrs Sex: Female : 1985 Arrival Date: 05/02/2016 Time: 12:38 Bed I2 / M2 Private MD: NO PRIMARY PHYSICIAN, . Diagnosis: Acute gingivitis;Acute lymphadenitis-Cervical Lymphadenopathy Presentation: 05/02 12:43 Presenting complaint: Patient states: was seen at ER in [facility]. pt reports sores in dsf mouth. pt reports left sided neck pain and swelling. pt also reports pain to left side when taking a deep breath. pt was given antibiotics for an infection. pt did have an MRI done. Onset: The symptoms/episode began/occurred 3 day(s) ago. This patient has not experienced a previous allergic reaction. Anaphylaxis evaluation, the patient reports or I have noted the following symptoms which indicate a significant risk of anaphylaxis: no signs or symptoms of anaphylaxis were noted. Adult Sepsis Screening: The patient does not have new or worsening altered mentation. Patient's respiratory rate is less than 22. Systolic blood pressure is greater than 100. Patient has a qSOFA score of 0- Negative Sepsis Screen. Suicide/Homicide risk assessment- the patient denies having any suicidal and/or homicidal ideations and does not present with any other emotional, behavioral or mental health complaints. Status: Patient is not a dispatcher maintenance service or dependent. Transition of care: patient was not received from another setting of care. 12:43 Acuity: MICHAELA Level 3 dsf 12:43 Method Of Arrival: Walkin/Carried/Asstd dsf Triage Assessment: 12:47 General: Appears in no apparent distress, Behavior is appropriate for age, cooperative. dsf Pain: Location: mouth and left side of neck Pain currently is 7 out of 10 on a pain scale. Quality of pain is described as stabbing, throbbing. HIV screening NA for this visit Offered previously. EENT: Reports difficulty swallowing since 3 days ago. Respiratory: Reports no respiratory complaints. 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 bc implant 2. Xanax 0.25 mg Oral tab as needed (Last dose: Unknown) 3. nystatin 100,000 unit/mL Oral susp 4 times per day (Last dose: 05/02/2016 10:46) 4. sulfamethoxazole-trimethoprim 800-160 mg Oral tab 1 tab every 12 hours (Last dose: 05/02/2016 07:30) - PMHx: liver and spleen enlarged; Anxiety; - PSHx: Tonsillectomy; wisdom teeth; - Social history: Smoking status: Patient uses tobacco products, current every day smoker. No barriers to communication noted, The patient speaks fluent Namibian, Speaks appropriately for age. - Family history: No immediate family members are acutely ill. - : The pt / caregiver states he / she is not on anticoagulants. Home medication list is obtained from the patient. - Exposure Risk Screening:: None identified. Screenin:31 Screening information is obtained from the patient. Fall risk: No risks identified. dls Assistance ADL's: requires no assistance with activities of daily living. Abuse/DV Screen: The patient / caregiver reports he/she is: not in a situation that causes fear, pain or injury. Nutritional screening: No deficits noted. Advance Directives: Currently, there is no health care proxy. There is no active DNR order. There is no living will. 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 Advance directive information has not previously been placed in an [facility] medical record. home support is adequate. Assessment: 14:51 General: Appears uncomfortable, Behavior is appropriate for age, cooperative. Pain: mb9 Location: mouth Pain currently is 8 out of 10 on a pain scale. Aggravated by eating, drinking. EENT: Lesions noted. pt appears to have lesions to the left upper gum line.. Respiratory: Airway is patent Respiratory effort is even, unlabored. 15:32 General: Appears. dls 15:33 General: Pt to CT and returned via w/c IV site remains patent and clear.. dls 15:46 Reassessment: Patient states feeling better. Patient states symptoms have improved. mb9 General: Appears uncomfortable, Behavior is cooperative. Pain: Location: mouth Pain currently is 4 out of 10 on a pain scale. 16:33 Respiratory: Breath sounds are clear bilaterally. dls Vital Signs: 12:41 BP 126 / 75; Pulse 76; Resp 18 S; Temp 99.6(O); Pulse Ox 100% on R/A; Weight 73.48 kg gr2 (R); Height 5 ft. 5 in. (165.10 cm) (R); Pain 7/10; 15:46 Temp 99.3(T); mb9 15:46 Pain 4/10; mb9 16:12 BP 103 / 59; Pulse 80; Resp 18; Temp 97.9(O); Pulse Ox 98% on R/A; Pain 6/10; nb2 12:41 Body Mass Index 26.96 (73.48 kg, 165.10 cm) gr2 Vitals: 12:41 Log In Time: May 02, 2016 at 12:41. gr2 ED Course: 12:40 Patient visited by Heidi Andrew. gr2 12:40 NO PRIMARY PHYSICIAN, . is Private Physician. gr2 12:40 Patient moved to Waiting gr2 12:41 Patient visited by Heidi Andrew. gr2 12:41 Patient moved to Pre RCE gr2 12:45 Triage Initiated dsf 13:40 Patient moved to Triage 2 srm 13:56 Ghazala Christpoher PA-C [facility] ef1 13:56 Veronica Godwin MD is Attending Physician. ef1 13:56 Patient visited by Ghazala Christopher PA-C. ef1 14:12 Patient moved to I2 / M2 srm 14:16 Patient visited by Ghazala Christopher PA-C. ef1 14:28 [facility] Payment Agreement was scanned into [employer] and attached to record. lg 14:49 Patient visited by Ghazala Christopher PA-C. ef1 14:49 Lipase Sent. mb9 14:49 Amylase Sent. mb9 14:50 -Influenza A&B Rapid Antigen - Nose Sent. mb9 14:50 Monoscreen Sent. mb9 14:50 Complete Comphrensive Metabolic Sent. mb9 14:50 CBC with Diff Sent. mb9 14:52 Inserted saline lock: 20 gauge in left antecubital area and blood collected. The mb9 patient tolerated the procedure well. 15:19 Patient visited by Ghazala Christopher PA-C. ef1 15:48 CT Neck With Contrast Returned. EDMS 15:51 Patient visited by Ghazala Christopher PA-C. ef1 16:11 Patient visited by Ghazala Christopher PA-C. ef1 16:13 Patient visited by Romana Murcia. nb2 16:14 [facility] is Referral Physician. ef1 16:14 Your, Dentist is Referral Physician. ef1 16:31 The patient / caregiver is instructed regarding the plan of care and ED course. dls 16:31 No procedures done that require assistance. dls 16:32 Discontinued IV lock intact, bleeding controlled, pressure dressing applied, No dls redness/swelling at site. 17:58 T-Sheet-- Draft Copy was scanned into [employer] and attached to record. klr 05/04 11:04 Radiology Report was scanned into [employer] and attached to record. gb Administered Medications: 05/02 14:49 Drug: Ondansetron 4 mg [ondansetron HCl 2 mg/mL intravenous solution (2 mL)] Route: mb9 IVP; Site: left antecubital; 14:50 Drug: ketorolac 30 mg [ketorolac 30 mg/mL (1 mL) injection solution (1 mL)] Route: IVP; mb9 Site: left antecubital; 15:46 Follow up: Pain 4/10 Adult; Response: Pain is decreased mb9 16:30 Drug: Amoxicillin-Clavulanate 1 tabs [amoxicillin 875 mg-potassium clavulanate 125 mg dls tablet (1 tabs)] Route: PO; 16:31 Follow up: Response: Pt left department before re-evaluation is appropriate dls Order Results: Lab Order: CBC with Diff; SPEC'M 05/02/16 14:44 Test: WHITE BLOOD COUNT; Value: 4.5; Range: 4.0-10.0; Units: K/mm3; Status: F Test: RED BLOOD COUNT; Value: 4.29; Range: 4.00-5.40; Units: M/mm3; Status: F Test: HEMOGLOBIN; Value: 13.4; Range: 12.0-16.0; Units: g/dl; Status: F Test: HEMATOCRIT; Value: 37.6; Range: 36.0-47.0; Units: %; Status: F Test: MEAN CORPUSCULAR VOLUME; Value: 87.6; Range: 80.0-96.0; Units: fl; Status: F Test: MEAN CORPUSCULAR HEMOGLOBIN; Value: 31.3; Range: 27.0-33.0; Units: pg; Status: F Test: MEAN CORPUSCULAR HGB CONC; Value: 35.8; Range: 32.0-36.5; Units: g/dl; Status: F Test: RED CELL DISTRIBUTION WIDTH; Value: 12.7; Range: 11.5-14.5; Units: %; Status: F Test: PLATELET COUNT, AUTOMATED; Value: 174; Range: 150-450; Units: k/mm3; Status: F Test: NEUTROPHILS %; Value: 74.1; Range: 36.0-66.0; Abnormal: Above high normal; Units: %; Status: F Test: LYMPH %; Value: 16.5; Range: 24.0-44.0; Abnormal: Below low normal; Units: %; Status: F Test: MONO %; Value: 6.6; Range: 0.0-5.0; Abnormal: Above high normal; Units: %; Status: F Test: EOS %; Value: 0.9; Range: 0.0-3.0; Units: %; Status: F Test: BASO %; Value: 0.3; Range: 0.0-1.0; Units: %; Status: F Test: LARGE UNSTAINED CELL %; Value: 1.6; Range: 0.0-4.0; Units: %; Status: F Test: NEUTROPHILS #; Value: 3.3; Range: 1.8-7.7; Units: K/mm3; Status: F Test: LYMPH #; Value: 0.8; Range: 1.5-6.5; Abnormal: Below low normal; Units: K/mm3; Status: F Test: MONO #; Value: 0.3; Range: 0.0-0.8; Units: K/mm3; Status: F Test: EOS #; Value: 0.0; Range: 0.0-0.50; Units: K/mm3; Status: F Test: BASO #; Value: 0.0; Range: 0.0-0.2; Units: K/mm3; Status: F Test: LARGE UNSTAINED CELL #; Value: 0.1; Range: 0.0-0.4; Units: K/mm3; Status: F Lab Order: Complete Comphrensive Metabolic; SPEC'M 05/02/16 14:44 Test: GLUCOSE, FASTING; Value: 78; Range: 70-105; Units: MG/DL; Status: F Test: BLOOD UREA NITROGEN; Value: 5; Range: 7-18; Abnormal: Below low normal; Units: MG/DL; Status: F Test: CREATININE FOR GFR; Value: 0.73; Range: 0.55-1.02; Units: MG/DL; Status: F Test: SODIUM LEVEL; Range: 136-145; Units: MEQ/L; Status: I Test: POTASSIUM SERUM; Range: 3.5-5.1; Units: MEQ/L; Status: I Test: CHLORIDE LEVEL; Range: 98-107; Units: MEQ/L; Status: I Test: CARBON DIOXIDE LEVEL; Range: 21-32; Units: MEQ/L; Status: I Test: ANION GAP; Range: 8-16; Units: MEQ/L; Status: I Test: CALCIUM LEVEL; Range: 8.5-10.1; Units: MG/DL; Status: I Test: AST/SGOT; Range: 15-37; Units: U/L; Status: I Test: ALT/SGPT; Range: 12-78; Units: U/L; Status: I Test: ALKALINE PHOSPHATASE; Range: 45-117; Units: U/L; Status: I Test: BILIRUBIN,TOTAL; Range: 0.2-1.0; Units: MG/DL; Status: I Test: TOTAL PROTEIN; Range: 6.4-8.2; Units: GM/DL; Status: I Test: ALBUMIN; Range: 3.2-5.2; Units: GM/DL; Status: I Test: ALBUMIN/GLOBULIN RATIO; Range: 1.00-1.93; Status: I Test: GLOMERULAR FILTRATION RATE; Value: > 60.0; Range: >60; Status: F Test: SODIUM LEVEL; Value: 143; Range: 136-145; Units: MEQ/L; Status: F Test: POTASSIUM SERUM; Value: 4.0; Range: 3.5-5.1; Units: MEQ/L; Status: F Test: CHLORIDE LEVEL; Value: 107; Range: 98-107; Units: MEQ/L; Status: F Test: CARBON DIOXIDE LEVEL; Value: 27; Range: 21-32; Units: MEQ/L; Status: F Test: ANION GAP; Value: 9; Range: 8-16; Units: MEQ/L; Status: F Test: CALCIUM LEVEL; Value: 8.9; Range: 8.5-10.1; Units: MG/DL; Status: F Test: AST/SGOT; Value: 13; Range: 15-37; Abnormal: Below low normal; Units: U/L; Status: F Test: ALT/SGPT; Value: 18; Range: 12-78; Units: U/L; Status: F Test: ALKALINE PHOSPHATASE; Value: 69; Range: 45-117; Units: U/L; Status: F Test: BILIRUBIN,TOTAL; Value: 0.5; Range: 0.2-1.0; Units: MG/DL; Status: F Test: TOTAL PROTEIN; Value: 7.0; Range: 6.4-8.2; Units: GM/DL; Status: F Test: ALBUMIN; Value: 4.4; Range: 3.2-5.2; Units: GM/DL; Status: F Test: ALBUMIN/GLOBULIN RATIO; Value: 1.69; Range: 1.00-1.93; Status: F Test Note: ; Units are mL/min/1.73 m2 Chronic Kidney Disease Staging per NKF: Stage I & II GFR >=60 Normal to Mildly Decreased Stage III GFR 30-59 Moderately Decreased Stage IV GFR 15-29 Severely Decreased Stage V GFR <15 Very Little GFR Left ESRD GFR <15 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 Cell culture (Viral Culture) testing should be considered to confirm NEGATIVE results and to assist in detecting other viruses that can provide similar clinical symptoms. Please contact the lab within 24 hours ([phone]) if confirmatory testing is desired. Lab Order: Amylase; SPEC'M 05/02/16 14:44 Test: AMYLASE; Value: 35; Range: 25-115; Units: U/L; Status: F Lab Order: Lipase; SPEC'M 05/02/16 14:44 Test: LIPASE; Value: 86; Range: 73-393; Units: U/L; Status: F Lab Order: GATS (NEGATIVE STREP SCREEN); SPEC'M 05/02/16 14:44 Test: GATS CULTURE (NEG STREP SCR); Value: GATS RESULT NEGATIVE FOR STREP PYOGENES (GROUP A); Status: F Test: GATS CULTURE (NEG STREP SCR); Value: <EXTERNAL COMMENT eCWMed> FULL REPORT IN LAB NOTES (eCW and Medent).; Status: F Radiology Order: CT Neck With Contrast Test: CT Neck With Contrast REASON FOR EXAMINATION: Deformity/Swelling; Clinical: Pain and swelling.; ; Technique: Axial contrast enhanced images from the skull base to the thoracic; inlet with coronal and sagittal re-formations using 100 ml IU 370 intravenous; contrast material.; ; Findings:; Mild adenopathy (left greater than right) noted with left-sided lymph nodes in; the submandibular region measuring up to approximately 17 mm. No significant; inflammatory stranding, mass/mass effect, drainable collection or abscess. The; nasopharynx, oropharynx and hypopharynx appears normal. Airway is patent.; ; Impression:; Adenopathy may reflect underlying infectious/inflammatory process.; No further mass/mass effect, drainable collection, abscess or pathology; appreciated.; ; ; Signed by; Tony Peñaloza MD 05/02/2016 03:37 P; Outcome: 16:14 Discharge ordered by Provider. ef1 16:32 Discharge Assessment: Patient awake, alert and oriented x 3. No cognitive and/or dls functional deficits noted. Patient verbalized understanding of disposition instructions. patient administered narcotics - no. The following High Risk Discharge criteria are identified: None. Discharged to home ambulatory, with family. Condition: stable. Discharge instructions given to patient, Instructed on discharge instructions, follow up and referral plans. medication usage, Demonstrated understanding of instructions, medications, Pt was receptive of discharge instructions/ teaching. Prescriptions given X 2. CT Study completed. Property sent home with patient. 16:33 Patient left the ED. dls Signatures: Dispatcher [facility] Yocasta Watt RN RN srm Scott, Debra, RN RN dls Barnhardt, Samantha, Reg Reg gb Erwin Hardy, Reg Reg lg Ghazala Christopher, PAOkC PA-C ef1 Day Lerma RN RN Heidi Benito 2 Trae Joyce RN RN mb9 Az, Romana Lomax 2 Chart Complete MTDD
--- NOTE | 2016-05-04 17:35 | EDDOCDS ---
Physician Documentation [facility] Name: Kalyn Olmos Age: 31 yrs Sex: Female : 1985 Arrival Date: 05/02/2016 Time: 12:38 Bed I2 / M2 Private MD: NO PRIMARY PHYSICIAN, . Disposition: 05/02/16 16:14 Discharged to Home/Self Care. Impression: Acute gingivitis, Acute lymphadenitis - Cervical Lymphadenopathy. - Condition is Stable. - Discharge Instructions: Gingivitis, Fjqu-ts-Kelk, Lymphadenopathy. - Prescriptions for Augmentin 875- 125 mg Oral Tablet - take 1 tablet by ORAL route every 12 hours for 10 days; 20 tablet. magic mouthwash Mucous Membrane Solution - apply to affected area 5 milliliters by ORAL route 4 times per day As needed Gargle, Swish, Spit; Maalox, Liquid Benadryl, and Viscous Lidocaine; 1 to 1 to 1 ratio; 237 milliliter. - Medication Reconciliation, Referral List Call for Appointment, Dental Referral List, Local Pharmacy Hours form. - Follow up: [facility] ; When: 1 - 2 days; Reason: Recheck today's complaints, Continuance of care. Follow up: Dentist Your; When: 1 - 2 days; Reason: Recheck today's complaints, Continuance of care. Follow up: Emergency Department; Reason: Worsening of conditions. - Problem is new. - Symptoms have improved. Historical: - Allergies: Codeine Sulfate; Tramadol HCl; - Home Meds: 1. bc implant 2. Xanax 0.25 mg Oral tab as needed (Last dose: Unknown) 3. nystatin 100,000 unit/mL Oral susp 4 times per day (Last dose: 05/02/2016 10:46) 4. sulfamethoxazole-trimethoprim 800-160 mg Oral tab 1 tab every 12 hours (Last dose: 05/02/2016 07:30) - PMHx: liver and spleen enlarged; Anxiety; - PSHx: Tonsillectomy; wisdom teeth; - Social history: Smoking status: Patient uses tobacco products, current every day smoker. No barriers to communication noted, The patient speaks fluent Indonesian, Speaks appropriately for age. - Family history: No immediate family members are acutely ill. - : The pt / caregiver states he / she is not on anticoagulants. Home medication list is obtained from the patient. - Exposure Risk Screening:: None identified. 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 5 in. (165.10 cm) (R); Pain 7/10; 15:46 Temp 99.3(T); mb9 15:46 Pain 4/10; mb9 16:12 BP 103 / 59; Pulse 80; Resp 18; Temp 97.9(O); Pulse Ox 98% on R/A; Pain 6/10; nb2 12:41 Body Mass Index 26.96 (73.48 kg, 165.10 cm) gr2 MDM: 13:58 Financial registration complete. lg 14:12 IV Saline Lock ordered. ef1 14:12 Strep Screen, Nursing ordered. ef1 14:12 Obtain sample by nasopharyngeal swab ordered. ef1 14:13 ketorolac 30 mg IVP once ordered. ef1 14:13 Ondansetron 4 mg IVP once ordered. ef1 14:14 CBC with Diff Ordered. EDMS 14:14 Complete Comphrensive Metabolic Ordered. EDMS 14:14 Monoscreen Ordered. EDMS 14:14 -Influenza A&B Rapid Antigen - Nose Ordered. EDMS 14:18 Amylase Ordered. EDMS 14:18 Lipase Ordered. EDMS 14:19 CT Neck With Contrast Ordered. EDMS 14:28 [facility] Payment Agreement was scanned into [employer] and attached to record. lg 14:52 GATS (NEGATIVE STREP SCREEN) Ordered. EDMS 15:19 CBC with Diff Reviewed. ef1 15:19 Monoscreen Reviewed. ef1 15:19 -Influenza A&B Rapid Antigen - Nose Reviewed. ef1 15:19 Amylase Reviewed. ef1 15:19 Lipase Reviewed. ef1 15:29 Complete Comphrensive Metabolic Reviewed. ef1 15:29 Monoscreen Reviewed. ef1 15:51 CT Neck With Contrast Reviewed. ef1 16:16 Amoxicillin-Clavulanate 875 mg 1 tabs PO once ordered. ef1 17:58 T-Sheet-- Draft Copy was scanned into [employer] and attached to record. klr 02/20 11:04 Radiology Report was scanned into [employer] and attached to record. gb Administered Medications: 05/02 14:49 Drug: Ondansetron 4 mg [ondansetron HCl 2 mg/mL intravenous solution (2 mL)] Route: mb9 IVP; Site: left antecubital; 14:50 Drug: ketorolac 30 mg [ketorolac 30 mg/mL (1 mL) injection solution (1 mL)] Route: IVP; mb9 Site: left antecubital; 15:46 Follow up: Pain 4/10 Adult; Response: Pain is decreased 9 16:30 Drug: Amoxicillin-Clavulanate 1 tabs [amoxicillin 875 mg-potassium clavulanate 125 mg dls tablet (1 tabs)] Route: PO; 16:31 Follow up: Response: Pt left department before re-evaluation is appropriate dls Signatures: Dispatcher [employer] EDMS Aracelis Majano RN RN dls Samantha Jackson, Reg Reg gb Erwin Hardy, Reg Reg lg Ghazala Christopher, PA-C PA-C ef1 Day LermaRN RN dsf Trae JoyceRN RN mb9 Tosin Bernardo The chart was reviewed and I authenticate all verbal orders and agree with the evaluation and treatment provided.Corrections: (The following items were deleted from the chart) 14:24 14:14 CT Maxillofacial with contrast+CT ordered. EDMS EDMS Attachments: 14:28 [facility] Payment Agreement lg 17:58 T-Sheet-- Draft Copy r Chart Complete MTDD
--- NOTE | 2016-05-04 17:36 | EDDOCDS ---
Physician Documentation [facility] Name: Kalyn Olmos Age: 31 yrs Sex: Female : 1985 Arrival Date: 05/02/2016 Time: 12:38 Bed I2 / M2 Private MD: NO PRIMARY PHYSICIAN, . Disposition: 05/02/16 16:14 Discharged to Home/Self Care. Impression: Acute gingivitis, Acute lymphadenitis - Cervical Lymphadenopathy. - Condition is Stable. - Discharge Instructions: Gingivitis, [id number]-[id number], Lymphadenopathy. - Prescriptions for Augmentin 875- 125 mg Oral Tablet - take 1 tablet by ORAL route every 12 hours for 10 days; 20 tablet. magic mouthwash Mucous Membrane Solution - apply to affected area 5 milliliters by ORAL route 4 times per day As needed Gargle, Swish, Spit; Maalox, Liquid Benadryl, and Viscous Lidocaine; 1 to 1 to 1 ratio; 237 milliliter. - Medication Reconciliation, Referral List Call for Appointment, Dental Referral List, Local Pharmacy Hours form. - [facility]: [facility] ; When: 1 - 2 days; Reason: Recheck today's complaints, Continuance of care. Follow up: [facility]; When: 1 - 2 days; Reason: Recheck today's complaints, Continuance of care. Follow up: Emergency Department; Reason: Worsening of conditions. - Problem is new. - Symptoms have improved. Historical: - Allergies: Codeine Sulfate; Tramadol HCl; - Home Meds: 1. bc implant 2. Xanax 0.25 mg Oral tab as needed (Last dose: Unknown) 3. nystatin 100,000 unit/mL Oral susp 4 times per day (Last dose: 05/02/2016 10:46) 4. sulfamethoxazole-trimethoprim 800-160 mg Oral tab 1 tab every 12 hours (Last dose: 05/02/2016 07:30) - PMHx: liver and spleen enlarged; Anxiety; - PSHx: Tonsillectomy; wisdom teeth; - Social history: Smoking status: Patient uses tobacco products, current every day smoker. No barriers to communication noted, The patient speaks fluent Korean, Speaks appropriately for age. - Family history: No immediate family members are acutely ill. - : The pt / caregiver states he / she is not on anticoagulants. Home medication list is obtained from the patient. - Exposure Risk Screening:: None identified. 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 5 in. (165.10 cm) (R); Pain 7/10; 15:46 Temp 99.3(T); mb9 15:46 Pain 4/10; mb9 16:12 BP 103 / 59; Pulse 80; Resp 18; Temp 97.9(O); Pulse Ox 98% on R/A; Pain 6/10; nb2 12:41 Body Mass Index 26.96 (73.48 kg, 165.10 cm) gr2 MDM: 13:58 Financial registration complete. lg 14:12 IV Saline Lock ordered. ef1 14:12 Strep Screen, Nursing ordered. ef1 14:12 Obtain sample by nasopharyngeal swab ordered. ef1 14:13 ketorolac 30 mg IVP once ordered. ef1 14:13 Ondansetron 4 mg IVP once ordered. ef1 14:14 CBC with Diff Ordered. EDMS 14:14 Complete Comphrensive Metabolic Ordered. EDMS 14:14 Monoscreen Ordered. EDMS 14:14 -Influenza A&B Rapid Antigen - Nose Ordered. EDMS 14:18 Amylase Ordered. EDMS 14:18 Lipase Ordered. EDMS 14:19 CT Neck With Contrast Ordered. EDMS 14:28 [facility] Payment Agreement was scanned into [employer] and attached to record. lg 14:52 GATS (NEGATIVE STREP SCREEN) Ordered. EDMS 15:19 CBC with Diff Reviewed. ef1 15:19 Monoscreen Reviewed. ef1 15:19 -Influenza A&B Rapid Antigen - Nose Reviewed. ef1 15:19 Amylase Reviewed. ef1 15:19 Lipase Reviewed. ef1 15:29 Complete Comphrensive Metabolic Reviewed. ef1 15:29 Monoscreen Reviewed. ef1 15:51 CT Neck With Contrast Reviewed. ef1 16:16 Amoxicillin-Clavulanate 875 mg 1 tabs PO once ordered. ef1 17:58 T-Sheet-- Draft Copy was scanned into [employer] and attached to record. klr 02/20 11:04 Radiology Report was scanned into [employer] and attached to record. gb Administered Medications: 05/02 14:49 Drug: Ondansetron 4 mg [ondansetron HCl 2 mg/mL intravenous solution (2 mL)] Route: mb9 IVP; Site: left antecubital; 14:50 Drug: ketorolac 30 mg [ketorolac 30 mg/mL (1 mL) injection solution (1 mL)] Route: IVP; mb9 Site: left antecubital; 15:46 Follow up: Pain 4/10 Adult; Response: Pain is decreased 9 16:30 Drug: Amoxicillin-Clavulanate 1 tabs [amoxicillin 875 mg-potassium clavulanate 125 mg dls tablet (1 tabs)] Route: PO; 16:31 Follow up: Response: Pt left department before re-evaluation is appropriate dls Signatures: Dispatcher [employer] EDMS Aracelis Majano RN RN dls Samantha Jackson, Reg Reg gb Erwin Hardy, Reg Reg lg Ghazala Christopher, PA-C PA-C ef1 Day LermaRN RN dsf Trae JoyceRN RN mb9 Tosin Bernardo The chart was reviewed and I authenticate all verbal orders and agree with the evaluation and treatment provided.Corrections: (The following items were deleted from the chart) 14:24 14:14 CT Maxillofacial with contrast+CT ordered. EDMS EDMS Attachments: 14:28 [facility] [place] Agreement lg 17:58 T-Sheet-- Draft Copy r Chart Complete MTDD
== END 2016-05-02 16:33 | disposition home or self-care (01) ==
LOC: M ED 12:38
DX: K05.01 Acute gingivitis, non-plaque induced (principal); R59.1 Generalized enlarged lymph nodes; F41.9 Anxiety disorder, unspecified; Z79.899 Other long term (current) drug therapy; Z88.2 Allergy status to sulfonamides; Z88.5 Allergy status to narcotic agent; F17.210 Nicotine dependence, cigarettes, uncomplicated

== ENCOUNTER → 2016-05-04 | Outpatient (REF) | payer OTHER | LOC: M SFHCCAPE 10:46 | PROVIDERS: ATTEND Physician Assistant | DX: B37.0 Candidal stomatitis (principal) ==

== ENCOUNTER 2016-06-18 17:13 | Emergency (ER) | payer OTHER ==
[~2016-06-18] VITALS: Ht 165.1 cm; Wt 71.7 kg
[2016-06-18] MEDS ORDERED: MORPHINE 2 MG/ML 1ML SYRINGE IV ONE (18:00)
[2016-06-18] MEDS ORDERED: PANTOPRAZOLE 40MG INJ (PROTONIX) (C9113) IV ONE ×2 (18:00→19:45)
[2016-06-18] MEDS ORDERED: ONDANSETRON 4MG/2ML VIAL (J2405) IV ONE (18:00)
[2016-06-18 18:30] LABS: BASO % 0.5 % (0.0-1.0); EOS # 0.1 K/mm3 (0.0-0.50); EOS % 1.4 % (0.0-3.0); LARGE UNSTAINED CELL # 0.1 K/mm3 (0.0-0.4); LARGE UNSTAINED CELL % 1.7 % (0.0-4.0); LYMPH # 1.6 K/mm3 (1.5-6.5); MEAN CORPUSCULAR HEMOGLOBIN 30.9 pg (27.0-33.0); MEAN CORPUSCULAR HGB CONC 35.3 g/dl (32.0-36.5); MEAN CORPUSCULAR VOLUME 87.7 fl (80.0-96.0); MONO # 0.3 K/mm3 (0.0-0.8); MONO % 5.3 % (0.0-5.0); NEUTROPHILS # 3.8 K/mm3 (1.8-7.7); PLATELET COUNT, AUTOMATED 246 k/mm3 (150-450); RED CELL DISTRIBUTION WIDTH 13.2 % (11.5-14.5); WHITE BLOOD COUNT 5.9 K/mm3 (4.0-10.0)
[2016-06-18 19:11] LABS: ALBUMIN/GLOBULIN RATIO 1.52 (1.00-1.93); ALKALINE PHOSPHATASE 77 U/L (45-117); ALT/SGPT 28 U/L (12-78); AMYLASE 43 U/L (25-115); ANION GAP 7 MEQ/L (8-16); AST/SGOT 25 U/L (15-37); BILIRUBIN,DIRECT 0.1 MG/DL (0.0-0.2); BILIRUBIN,TOTAL 0.5 MG/DL (0.2-1.0); BLOOD UREA NITROGEN 19 MG/DL (7-18); CARBON DIOXIDE LEVEL 28 MEQ/L (21-32); CHLORIDE LEVEL 103 MEQ/L (98-107); CREATININE FOR GFR 0.83 MG/DL (0.55-1.02); GLOMERULAR FILTRATION RATE > 60.0 (>60); GLUCOSE, FASTING 83 MG/DL (70-105); POTASSIUM SERUM 4.2 MEQ/L (3.5-5.1); SODIUM LEVEL 138 MEQ/L (136-145); TOTAL PROTEIN 8.3 GM/DL (6.4-8.2)
[2016-06-18] MEDS ORDERED: GASTROGRAFIN SOLUTION 30ML (Q9963) PO ONE ×2 (19:45)
[2016-06-18] MEDS ORDERED: ISOVUE-370 76% 100ML VIAL (Q9967) As Ordered ONE (21:16)
--- NOTE | 2016-06-18 22:00 | REPUSA ---
CT of the abdomen and pelvis with contrast Clinical statement: Pain. Technique: Multiple axial CT images were obtained from the base of the lungs through the floor of the pelvis utilizing 5 mm axial slices after administration of oral and nonionic intravenous contrast. C oronal and sagittal reconstructions were also obtained. Comparison: 01/20/2016. Findings: Chest: The visualized lung bases are clear. Abdomen: The liver, spleen, pancreas, kidneys, gallbladder, and adrenal glands are unremarkable. The aorta is within normal limits. There is no evidence of abdominal lymphadenopathy or ascites. Pelvis: The bowel is unremarkable, with no obstructive or inflammatory changes. The urinary bladder i s within normal limits. The other pelvic structures appear grossly intact. There is no evidence of pe lvic lymphadenopathy or ascites. Bones: There are no suspicious osseous abnormalities seen. Impression: Unremarkable CT examination of the abdomen and pelvis.
[2016-06-18 22:22] VITALS: BP 112/55
[2016-06-18] MEDS ORDERED: MAGNESIUM CITRATE 300 ML BTL PO ONE (22:30)
== END 2016-06-18 22:37 | disposition home or self-care (01) ==
LOC: M ED 17:56
DX: K59.00 Constipation, unspecified (principal); K42.9 Umbilical hernia without obstruction or gangrene; Z88.5 Allergy status to narcotic agent

== ENCOUNTER → 2017-10-06 | Outpatient (CLI) | payer OTHER | LOC: M RAD 07:06 | DX: R10.13 Epigastric pain (principal) | CPT/HCPCS: 76705 ==

== ENCOUNTER 2019-02-07 21:19 | Emergency (ER) | payer OTHER ==
[~2019-02-07] VITALS: Ht 165.1 cm; Wt 77.3 kg
[~2019-02-07 21:19] MED LIST: ESCI10TA2 PO; LEVO25TA5 PO
[2019-02-07] MEDS ORDERED: LIDOCAINE 2% MDV 20 ML VIAL SC ONE (23:15)
[2019-02-08 00:07] VITALS: BP 135/68
== END 2019-02-08 00:14 | disposition home or self-care (01) ==
LOC: M ED 21:19
DX: S91.312A Laceration without foreign body, left foot, initial encounter (principal); W22.8XXA Striking against or struck by other objects, initial encounter; Y92.018 Other place in single-family (private) house as the place of occurrence of the external cause; E03.9 Hypothyroidism, unspecified; Z79.890 Hormone replacement therapy; Z88.5 Allergy status to narcotic agent

== ENCOUNTER → 2020-04-09 | Outpatient (REF) | payer OTHER ==
[~2020-04-09] MED LIST changes: +ESCI10TA16 PO; -ESCI10TA2 PO
[2020-04-10 13:53] LABS: BASO % 0.5 % (0.0-1.0); EOS # 0.1 10^3/uL (0.0-0.5); EOS % 1.8 % (0.0-3.0); HEMATOCRIT 40.3 % (36.0-47.0); HEMOGLOBIN 13.8 g/dl (12.0-15.5); LYMPH # 1.7 10^3/uL (1.5-5.0); LYMPH % 27.3 % (24.0-44.0); MEAN CORPUSCULAR HEMOGLOBIN 30.3 pg (27.0-33.0); MEAN CORPUSCULAR HGB CONC 34.2 g/dl (32.0-36.5); MEAN CORPUSCULAR VOLUME 88.6 fl (80.0-96.0); MONO # 0.5 10^3/uL (0.0-0.8); MONO % 7.3 % (0.0-5.0); NEUTROPHILS # 3.8 10^3/uL (1.5-8.5); NEUTROPHILS % 61.6 % (36.0-66.0); PLATELET COUNT, AUTOMATED 295 10^3/uL (150-450); RED BLOOD COUNT 4.55 10^6/uL (4.00-5.40); WHITE BLOOD COUNT 6.2 10^3/uL (4.0-10.0)
[2020-04-10 14:21] LABS: FOLLICLE STIMULATING HORMONE 8.9 mIU/mL; LUTEINIZING HORMONE 25.9 mIU/mL
== END ==
LOC: M LAB REF 12:11
PROVIDERS: ATTEND Obstetrics & Gynecology
DX: N92.1 Excessive and frequent menstruation with irregular cycle (principal)

== ENCOUNTER → 2020-04-17 | Outpatient (CLI) | payer OTHER ==
--- NOTE | 2020-04-17 17:45 | REP ---
INDICATION: N92.1 EXCESSIVE AND FREQUENT MENSES COMPARISON: 2013 TECHNIQUE: Transabdominal pelvic ultrasound with color Doppler evaluation of the ovaries. FINDINGS: Bladder is unremarkable and measures 10.3 x 10.5 x 6.6 cm (374 cc). Heterogeneous anteverted uterus measures 9.4 x 3.9 x 5.5 cm. The endometrial complex measures 19 mm thickness. No discrete uterine or endometrial abnormalities are appreciated. Bilateral ovaries are normal in appearance and vascularity without evidence for torsion. Right ovary measures 3.0 x 2.2 x 3.0 cm; R I = 0.58. Left ovary measures 3.2 x 2.4 x 2.6 cm; R I = 0.61. No pelvic fluid or adnexal mass lesion IMPRESSION: Thickened endometrial complex. Otherwise normal pelvic ultrasound. No focal abnormality noted. <Electronically signed by Tony Peñaloza > 04/17/20 [id number]
== END ==
LOC: M WHC 15:59
PROVIDERS: ATTEND Obstetrics & Gynecology
DX: N92.1 Excessive and frequent menstruation with irregular cycle (principal)

== ENCOUNTER → 2020-05-02 | Outpatient (CLI) | payer OTHER ==
--- NOTE | 2020-05-02 15:01 | REP ---
INDICATION: NAUSEA ABD PAIN W/ FULLNESS. COMPARISON: Comparison gastric emptying nuclear scintigraphy 12 September 2015.. TECHNIQUE/RADIOTRACER AND DOSE: 1.05 mCi of Technetium-99m sulfur colloid was ingested in two scrambled eggs and 6 ounces of water and sequential anterior and posterior images are acquired for an 89-minute imaging observation period. Regions of interest are drawn around the stomach to plot gastric emptying. FINDINGS: Expected T1/2 is 90 minutes. Fifty-one% emptying is observed in this patient during the 89-minute imaging observation period, for a calculated T1/2 in this patient of 95 minutes. IMPRESSION: Normal gastric emptying. <Electronically signed by Jim Coyle > 05/02/20 [id number]
== END ==
LOC: M RAD 12:27
DX: R10.9 Unspecified abdominal pain (principal)
CPT/HCPCS: 78264; A9541

== ENCOUNTER 2020-12-02 12:20 | Emergency (ER) | payer OTHER ==
[~2020-12-02] VITALS: Ht 165.1 cm; Wt 68.2 kg
[2020-12-02] MEDS ORDERED: ZOLP10TA2 PO (14:54)
[2020-12-02 15:08] LABS: BASO % 0.5 % (0.0-1.0); EOS % 0.7 % (0.0-3.0); HEMATOCRIT 42.7 % (36.0-47.0); HEMOGLOBIN 14.6 g/dl (12.0-15.5); LYMPH # 1.4 10^3/uL (1.5-5.0); LYMPH % 23.7 % (24.0-44.0); MEAN CORPUSCULAR HEMOGLOBIN 30.3 pg (27.0-33.0); MEAN CORPUSCULAR HGB CONC 34.2 g/dl (32.0-36.5); MEAN CORPUSCULAR VOLUME 88.6 fl (80.0-96.0); MONO # 0.4 10^3/uL (0.0-0.8); MONO % 6.6 % (2.0-8.0); NEUTROPHILS # 3.9 10^3/uL (1.5-8.5); PLATELET COUNT, AUTOMATED 243 10^3/uL (150-450); RED BLOOD COUNT 4.82 10^6/uL (4.00-5.40); WHITE BLOOD COUNT 5.8 10^3/uL (4.0-10.0)
--- NOTE | 2020-12-02 16:21 | REP ---
INDICATION: R pelvic pain, hcg + low. COMPARISON: None. TECHNIQUE: Real-time sonographic evaluation of pelvis performed utilizing transabdominal and endovaginal technique. FINDINGS: The uterus measures 9.4 x 4.9 x 6.4 cm. Endometrial thickness is 27 mm. No intrauterine gestational sac or fluid collection is seen. Ovaries are normal in size and echotexture, right ovary measuring 3.8 x 2.9 x 2.8 cm and left ovary 2.7 x 1.8 x 2.9 cm. There is no evidence of ovarian torsion with duplex Doppler evaluation. There is no adnexal mass or free fluid. IMPRESSION: Thickened endometrium with no intrauterine gestational sac. No adnexal mass or free fluid. No torsion. Differential diagnosis would include very early intrauterine , missed AB, or ectopic . Suggest correlation with serial quantitative beta HCG values, and follow-up ultrasound if necessary. <Electronically signed by Alxe Herman > 12/02/20 1981
[2020-12-02 16:41] VITALS: BP 101/71
== END 2020-12-02 16:40 | disposition home or self-care (01) ==
LOC: M ED 12:20
DX: Z32.01 Encounter for pregnancy test, result positive (principal); E03.9 Hypothyroidism, unspecified; R16.0 Hepatomegaly, not elsewhere classified; Z88.5 Allergy status to narcotic agent; Z79.890 Hormone replacement therapy

== ENCOUNTER → 2020-12-04 | Outpatient (REF) | payer OTHER ==
[~2020-12-04] MED LIST changes: +ZOLP10TA2 PO
== END ==
LOC: M LAB 08:40 → EDSTATUS 12-19 08:39
PROVIDERS: ATTEND Nurse Practitioner Family
DX: R10.9 Unspecified abdominal pain (principal); Z32.01 Encounter for pregnancy test, result positive

== ENCOUNTER 2020-12-20 13:50 | Emergency (ER) | payer OTHER ==
[~2020-12-20] VITALS: Ht 165.1 cm; Wt 66.0 kg
[2020-12-20] MEDS ORDERED: NS 1,000 ML IV ONE (16:25)
[2020-12-20] MEDS ORDERED: GI COCKTAIL 50ML BTL(HYOSCYAMINE/MAALOX/LIDOCAINE VISCOUS)(1:3:1) PO ONE (16:25)
[2020-12-20] MEDS ORDERED: KETOROLAC 30 MG/ML 1ML VIAL IV ONE (16:25)
[2020-12-20] MEDS ORDERED: ONDANSETRON 4MG/2ML VIAL IV ONE (16:25)
[2020-12-20 16:46] LABS: BASO % 0.5 % (0.0-1.0); HEMATOCRIT 40.7 % (36.0-47.0); HEMOGLOBIN 13.8 g/dl (12.0-15.5); LYMPH # 0.6 10^3/uL (1.5-5.0); LYMPH % 10.6 % (24.0-44.0); MEAN CORPUSCULAR HEMOGLOBIN 30.3 pg (27.0-33.0); MEAN CORPUSCULAR HGB CONC 33.9 g/dl (32.0-36.5); MEAN CORPUSCULAR VOLUME 89.3 fl (80.0-96.0); MONO # 0.1 10^3/uL (0.0-0.8); MONO % 1.7 % (2.0-8.0); NEUTROPHILS % 86.5 % (36.0-66.0); PLATELET COUNT, AUTOMATED 273 10^3/uL (150-450); RED BLOOD COUNT 4.56 10^6/uL (4.00-5.40); WHITE BLOOD COUNT 5.8 10^3/uL (4.0-10.0)
[2020-12-20 17:16] LABS: C REACTIVE PROTEIN QUANTITATIV < 0.30 MG/DL (0.00-0.30); FREE THYROXINE INDEX 3.4 % (1.3-4.8); T UPTAKE 34 % (30-39); THYROID STIMULATING HORMONE 0.439 uIU/ML (0.358-3.740); THYROXINE (T4) 9.9 UG/DL (4.5-12.0)
[2020-12-20] MEDS ORDERED: ISOVUE-370 76% 100ML VIAL As Ordered ONE (17:21)
[2020-12-20 17:40] LABS: ERYTHROCYTE SEDIMENTATION RATE 3 mm/hr (0-20)
[2020-12-20 17:45] LABS: MONO REFLEX EBV COMP NEGATIVE (NEGATIVE)
--- NOTE | 2020-12-20 18:09 | REPVR ---
PROCEDURE INFORMATION: Exam: CT Neck With Contrast Exam date and time: 12/20/2020 5:23 PM Age: 35 years old Clinical indication: Mass, lump, or swelling in neck; Left; Additional info: L side lad, throat swelling, tongue swelling per PT. TECHNIQUE: Imaging protocol: Computed tomography images of the neck with contrast. Radiation optimization: All CT scans at this facility use at least one of these dose optimization techniques: automated exposure control; mA and/or kV adjustment per patient size (includes targeted exams where dose is matched to clinical indication); or iterative reconstruction. Contrast material: ISOVUE 370; Contrast volume: 75 ml; Contrast route: INTRAVENOUS (IV); COMPARISON: CT Neck with contrast 05/02/2016 3:25 PM FINDINGS: Nasopharynx: Unremarkable. Oropharynx: Mild asymmetry and prominence of the posterior margin of the base of the tongue without a discrete mass. Hypopharynx: Unremarkable. Larynx: Unremarkable. Normal epiglottis. Retropharyngeal space: Unremarkable. Submandibular/Parotid glands: Normal. Glands are normal in size. Thyroid: Normal. No enlarged or calcified nodules. Lymph nodes: Unremarkable. No lymphadenopathy. Trachea: Visualized trachea is unremarkable. Lungs: Unremarkable as visualized. Bones/joints: Unremarkable. No acute fracture. Soft tissues: Unremarkable. No significant soft tissue swelling. IMPRESSION: 1. Mild asymmetry and prominence of the posterior margin of the base of the tongue without a discrete mass. 2. Otherwise unremarkable. Electronically signed by: Natanael Swanson On 12/20/2020 18:09:00 PM
[2020-12-20] MEDS ORDERED: PRED20TA PO (19:22)
[2020-12-20] MEDS ORDERED: dexameTHASONE 4 MG/ML 1ML VIAL (J1100 PER 1MG) PO ONE ×2 (19:30→20:00)
[2020-12-20 20:27] VITALS: BP 121/78
--- NOTE | 2020-12-21 06:25 | ED PDOC ---
Post-Departure Follow-Up celina rahman faxed formal report of ct neck for fu jasming Chet Jesus MD Dec 21, 2020 06:25
[2020-12-23 15:07] LABS: EBV AB TO NUCLEAR ANTIGEN >600.0 U/mL (0.0-17.9); EBV VIRAL CAPSID AG IgM <36.0 U/mL (0.0-35.9); Lyme Disease IgG/IgM Antibodie <0.91 ISR (0.00-0.90); Lyme Disease IgM Ab Quantitati <0.80 index (0.00-0.79)
== END 2020-12-20 20:28 | disposition home or self-care (01) ==
LOC: M ED 13:50
DX: R22.0 Localized swelling, mass and lump, head (principal); M54.2 Cervicalgia; E03.9 Hypothyroidism, unspecified; Z79.890 Hormone replacement therapy; Z88.5 Allergy status to narcotic agent; F17.210 Nicotine dependence, cigarettes, uncomplicated
CPT/HCPCS: 70491; 80047; 84436; 84443; 84479; 84702; 85025; 85652; 86140; 86308; 86617; 86664; 86665; 96361; 96374; 96375; 99283; J1885; J2405; Q9967

== ENCOUNTER → 2021-01-09 | Outpatient (CLI) | payer OTHER ==
[~2021-01-09] MED LIST changes: +PRED20TA PO
== END ==
LOC: M LAB 14:25
PROVIDERS: ATTEND Nurse Practitioner Family
DX: N39.0 Urinary tract infection, site not specified (principal); R30.0 Dysuria

== ENCOUNTER → 2022-11-11 | Outpatient (CLI) | payer OTHER | LOC: M WHC 09:02 | PROVIDERS: ATTEND Internal Medicine | DX: R10.32 Left lower quadrant pain (principal) ==

== ENCOUNTER → 2023-02-08 | Outpatient (CLI) | payer OTHER | LOC: M EKG 12:50 | PROVIDERS: ATTEND Physician Assistant Medical | DX: R00.1 Bradycardia, unspecified (principal); R42 Dizziness and giddiness ==

== ENCOUNTER → 2023-08-03 | Outpatient (CLI) | payer OTHER ==
[~2023-08-03] MED LIST changes: +GASTROGRAFIN SOLUTION 30ML As Ordered ONE; +ISOVUE-370 76% 100ML VIAL As Ordered ONE
== END ==
LOC: M RAD 08:11
PROVIDERS: ATTEND Internal Medicine
DX: K76.0 Fatty (change of) liver, not elsewhere classified (principal); R10.10 Upper abdominal pain, unspecified
CPT/HCPCS: 74177; Q9963; Q9967

== ENCOUNTER → 2024-07-21 | Outpatient (CLI) | payer OTHER ==
[~2024-07-21] MED LIST changes: -GASTROGRAFIN SOLUTION 30ML As Ordered ONE; -ISOVUE-370 76% 100ML VIAL As Ordered ONE
== END ==
LOC: M PLAIMG 07-07 10:12 → M RAD 10:31
PROVIDERS: ATTEND Physician Assistant
DX: J32.8 Other chronic sinusitis (principal)

== ENCOUNTER → 2024-11-08 | Outpatient (CLI) | payer OTHER ==
[~2024-11-08] MED LIST changes: +HYDR-3363; +LEVO50TA5; +PRED10TA2 PO
[2024-11-08 16:38] LABS: BASO # 0.1 10^3/uL (0.0-0.2); BASO % 0.8 % (0.0-1.0); EOS # 0.1 10^3/uL (0.0-0.5); EOS % 1.3 % (0.0-3.0); LYMPH # 1.8 10^3/uL (1.5-5.0); LYMPH % 27.8 % (24.0-44.0); MONO # 0.4 10^3/uL (0.0-0.8); MONO % 6.3 % (2.0-8.0); NEUTROPHILS # 4.0 10^3/uL (1.5-8.5); NEUTROPHILS % 62.1 % (36.0-66.0); PLATELET COUNT, AUTOMATED 316 10^3/uL (150-450)
[2024-11-08 16:42] LABS: ERYTHROCYTE SEDIMENTATION RATE 6 mm/hr (0-20)
[2024-11-08 17:03] LABS: C REACTIVE PROTEIN QUANTITATIV < 0.50 MG/DL (<1.0)
[2024-11-08 17:05] LABS: RHEUMATOID FACTOR QUANT < 3.5 IU/ML (<14)
[2024-11-08 17:08] LABS: THYROID PEROXIDASE ANTIBODY 32 U/ML (<60.0)
[2024-11-13 11:28] LABS: TRYPTASE 4.7 mcg/L (<11.0)
[2024-11-14 14:37] LABS: THRYOGLOBULIN ANTIBODIES (ATA) < 1 IU/mL (< or = 1); THYROGLOBULIN QUANTITATIVE 11.2 ng/mL (2.8-40.9)
== END ==
LOC: M LAB 15:26
PROVIDERS: ATTEND Allergy & Immunology Allergy
DX: L50.1 Idiopathic urticaria (principal)

== ENCOUNTER → 2024-12-20 | Outpatient (CLI) | payer OTHER ==
[~2024-12-20] MED LIST changes: +ZOLP10TA11 PO; -ZOLP10TA2 PO
== END ==
LOC: M RAD 07:09
PROVIDERS: ATTEND Internal Medicine Gastroenterology
DX: R11.2 Nausea with vomiting, unspecified (principal)
CPT/HCPCS: 78227; A9537